=== PATIENT | male | born 1985 | race Caucasian/White ===

== ENCOUNTER → 2017-10-11 10:21 | Outpatient (CLI) | payer OTHER, SELFPAY ==
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
--- NOTE | 2017-10-11 10:39 | XR_ITS ---
EXAM: XR lumbar spine min 4V HISTORY: ORDERING PHYSICIAN: Charles Negron MD PATIENT AGE: 32 years COMPARISON: None FINDINGS: Normal alignment. No fracture or dislocation. No lytic or blastic change. No significant degenerative change. The disc spaces are preserved. IMPRESSION: Negative lumbar spine
== END ==
PROVIDERS: PCP Nurse Practitioner Family; Visit Provider Family Medicine
DX: M54.2 Cervicalgia (principal); M54.5 Low back pain; M54.6 Pain in thoracic spine
CPT/HCPCS: 72050; 72072; 72110

== ENCOUNTER → 2019-02-26 09:20 | Outpatient (CLI) | payer BC, SELFPAY ==
--- NOTE | 2019-02-26 09:38 | MR_ITS ---
MR cervical spine wo/w con HISTORY: ITS.REASON: BACK PAIN ORDERING PHYSICIAN: Beverly Fitzgerald APRN PATIENT AGE: 33 years Comparison: None TECHNIQUE: Standard multiplanar multiecho sequences are performed without contrast. 3-D MIP and myelographic images are also rendered and reviewed. Contrasted images were performed with intravenous injection of 20 cc of ProHance contrast. FINDINGS: Alignment, vertebral body and disc space heights are normal. Signal from the osseous marrow elements are normal. There are no areas of abnormal enhancement or abnormal signal. Spinal cord is normal. There is no disc herniation, bulge or central canal stenosis. Foramen magnum and foraminal areas are normal. Paraspinal structures appear unremarkable. IMPRESSION: Normal exam.
--- NOTE | 2019-02-26 09:38 | MR_ITS ---
MR lumbar spine wo/w con HISTORY: ITS.REASON: BACK PAIN ORDERING PHYSICIAN: Beverly Fitzgerald APRN PATIENT AGE: 33 years Comparison: None TECHNIQUE: Standard multiplanar multiecho sequences are performed without contrast. 3-D MIP and myelographic images are also rendered and reviewed. T1-weighted contrasted images are obtained following intravenous injection of 21 cc of ProHance contrast. FINDINGS: Alignment, vertebral body and disc space heights are normal except for mild loss of disc space height at L5-S1. Signal from the osseous marrow elements are normal with a small benign cavernous hemangioma at the L2 vertebral level. L5-S1 level also shows a small central posterior protrusion of the nucleus pulposus with only mild ventral thecal sac deformity. The remainder of the disc levels are normal without bulge, herniation or central stenosis. There are no areas of abnormal enhancement. Nerve roots and foraminal areas are normal. The conus and Reyna equine a structures are normal. Paraspinal areas are unremarkable. IMPRESSION: L5-S1 degenerative disc disease with small midline posterior disc herniation of the protrusion type with only mild mass effect.
== END ==
PROVIDERS: PCP Family Medicine; Visit Provider Nurse Practitioner Family
DX: M54.5 Low back pain (principal); M54.2 Cervicalgia; M54.6 Pain in thoracic spine
CPT/HCPCS: 72156; 72158; 76376; A9576

== ENCOUNTER → 2019-02-28 08:25 | Outpatient (CLI) | payer BC, SELFPAY ==
--- NOTE | 2019-02-28 08:35 | MR_ITS ---
MR thoracic spine wo/w con ORDERING PHYSICIAN : Beverly Fitzgerald APRN PATIENT AGE: 33 years GENDER: Male HISTORY:ITS.REASON: BACK PAIN COMPARISON: 01/11/2017. TECHNIQUE: Routine multiecho and multiplanar images. FINDINGS: The alignment, vertebral body and disc space heights are normal. Signal from the osseous marrow elements are normal. There is no disc bulge, herniation or central canal stenosis. Foraminal areas and posterior elements appear normal. The visualized paraspinal areas are unremarkable. Spinal cord is of normal caliber and signal. IMPRESSION: Normal exam. No acute process.
== END ==
PROVIDERS: PCP Family Medicine; Visit Provider Nurse Practitioner Family
DX: M54.6 Pain in thoracic spine (principal)
CPT/HCPCS: 72157; A9576

== ENCOUNTER → 2019-08-05 10:39 | Outpatient (CLI) | payer BC, SELFPAY ==
--- NOTE | 2019-08-05 10:47 | XR_ITS ---
PROCEDURE: XR SHOULDER RT MIN 2V CLINICAL INDICATION: RT SHOULDER PAIN COMPARISON: No exams were available for comparison FINDINGS: No fracture, dislocation, lytic change, or blastic change evident. No significant degenerative change IMPRESSION: No acute findings. Dictated by: Morro Joya MD 08/05/2019 19:59 Electronically signed by Morro Joya MD in [place] 08/05/2019 19:59
--- NOTE | 2019-08-05 10:47 | XR_ITS ---
PROCEDURE: XR FOOT LT MIN 3V CLINICAL INDICATION: LT FOOT PAIN COMPARISON: No exams were available for comparison FINDINGS: No fracture or dislocation. No lytic or blastic change. There is normal mineralization. The joint spaces are well-preserved. No significant degenerative/arthritic changes. No erosive changes evident. Other findings:There is a small calcaneal spur nonspecific IMPRESSION: No acute findings. Dictated by: Morro Joya MD 08/05/2019 19:59 Electronically signed by Morro Joya MD in [place] 08/05/2019 19:59
== END ==
PROVIDERS: PCP Nurse Practitioner Family; Visit Provider Nurse Practitioner Family
DX: M25.511 Pain in right shoulder (principal); M79.672 Pain in left foot
CPT/HCPCS: 73030; 73630

== ENCOUNTER → 2020-10-23 14:53 | Outpatient (CLI) | payer BC, SELFPAY ==
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
== END ==
PROVIDERS: PCP Nurse Practitioner Family; Visit Provider Orthopaedic Surgery
DX: M25.511 Pain in right shoulder (principal)
CPT/HCPCS: 73030

== ENCOUNTER 2021-06-02 16:36 | Outpatient (RCR) | payer BC, SELFPAY | END 2021-06-02 17:10 | disposition home or self-care (01) | LOC: PT 16:36 | PROVIDERS: Visit Provider Orthopaedic Surgery | DX: G56.01 Carpal tunnel syndrome, right upper limb (principal) | CPT/HCPCS: 97760 ==

== ENCOUNTER → 2021-10-19 16:35 | Outpatient (CLI) | payer BC, SELFPAY ==
[2021-10-19 17:15] LABS: Basophils % 0.5 % (0.1-2.0); Eosinophils # 0.1 K/mm3 (0.0-0.4); Eosinophils % 2.5 % (0.1-12.0); Hematocrit 43.4 % (42.0-52.0); Hemoglobin 13.9 g/dL (14.1-18.0); Lymphocytes # 1.1 K/mm3 (0.7-4.5); Lymphocytes % 29.8 % (10-50); Mean Corpuscular HGB Conc 32.1 g/dL (31.8-35.4); Mean Corpuscular Hemoglobin 25.3 pg (27.0-31.2); Mean Corpuscular Volume 78.8 fl (80-94); Mean Platelet Volume 8.2 fl (7.4-10.4); Monocytes # 0.3 K/mm3 (0.1-1.0); Monocytes % 7.1 % (1.7-9.3); Neutrophils # 2.3 K/mm3 (1.8-7.8); Platelet Count 218 K/mm3 (142-424); Red Cell Distribution Width 14.8 % (11.5-17.5); White Blood Count 3.8 K/mm3 (4.8-10.8)
[2021-10-19 17:40] LABS: Chloride 103 mmol/L (98-107); Potassium 4.2 mmoL/L (3.5-5.1); Sodium 137 mmol/L (136-145)
[2021-10-19 17:43] LABS: Anion Gap 12.2 mEq/L (5-15); Blood Urea Nitrogen 14 mg/dl (9-20); Calcium 8.5 mg/dl (8.4-10.2); Carbon Dioxide 26 mmol/L (22.0-30.0); Estimated Glomerular Filt Rate 68 ml/min (>60); GFR (African American) 82 ML/MIN (>60); Glucose 86 mg/dl (74-100)
[2021-10-19 17:49] LABS: C-Reactive Protein 1.1 mg/L (0-4)
[2021-10-19 18:14] LABS: Erythrocyte Sedimentation Rate 27 mm/hr (0-15)
== END ==
PROVIDERS: PCP Nurse Practitioner Family; Visit Provider Podiatrist
DX: Z01.818 Encounter for other preprocedural examination (principal); M79.672 Pain in left foot; M72.2 Plantar fascial fibromatosis
CPT/HCPCS: 36415; 80048; 85025; 85651; 86140

== ENCOUNTER → 2021-10-21 16:29 | Outpatient (CLI) | payer BC, SELFPAY ==
--- NOTE | 2021-10-21 16:38 | XR_ITS ---
PROCEDURE INFORMATION: Exam: XR Left Foot Complete; Alignment Exam date and time: 10/21/2021 4:38 PM Age: 36 years old Clinical indication: Pain; Foot; Left; Additional info: Left foot pain, plantar fasciitis, pre op planning TECHNIQUE: Imaging protocol: XR Left foot. Views: 3 or more views. COMPARISON: MRI LOWER EXTREMITY FOOT W/WOUT 11/23/2020 5:06 PM FINDINGS: Bones/joints: No acute displaced fracture. No dislocation. Minimal degenerative spurring of the 1st MTP joint. Small to moderate size plantar and small dorsal calcaneal enthesophytes. Soft tissues: Normal. IMPRESSION: No acute finding. Calcaneal enthesophytes.
== END ==
PROVIDERS: PCP Nurse Practitioner Family; Visit Provider Podiatrist
DX: M79.672 Pain in left foot (principal); M72.2 Plantar fascial fibromatosis; M77.32 Calcaneal spur, left foot
CPT/HCPCS: 73630

== ENCOUNTER → 2021-11-08 16:24 | Outpatient (CLI) | payer BC, SELFPAY | PROVIDERS: Visit Provider Podiatrist | DX: Z01.812 Encounter for preprocedural laboratory examination (principal); Z11.52 Encounter for screening for COVID-19 | CPT/HCPCS: C9803; U0003; U0005 ==

== ENCOUNTER 2021-11-10 06:04 | Day surgery (SDC) | payer BC, SELFPAY ==
[2021-11-08 15:07] VITALS: BMI 33.2
[2021-11-10] VITALS (10 sets, daily range): BP systolic 124–160; BP diastolic 72–84; PULSE 77–98; RESP 12–18; TEMP 36.3–43; O2SAT 93–99
--- NOTE | 2021-11-10 06:32 | ECG_ITS ---
APPROVED REPORT Exam: Resting ECG HR:75 bpm ECG Measurements Heart Rate 75 AXES PA 168 P 57 QRSd 94 QRS 44 QT 381 T 39 QTc 410 Conclusion SINUS RHYTHM POSSIBLE RIGHT VENTRICULAR CONDUCTION DELAY [RSR (QR) IN V1/V2] BORDERLINE ECG UNCONFIRMED REPORT Electronically signed by : Chase Dumas MD 11/10/2021 17:50:05
--- NOTE | 2021-11-10 07:18 | HMH.OPNOTE ---
Date of procedure: 11/10/21 Pre-op Diagnosis:: 1. Left plantar fasciitis 2. Left gastrocnemius equinus Post-op Diagnosis:: Same Procedure performed:: 1. Left plantar fasciectomy (fasciotomy) 2. Left gastrocnemius recession 3. Application of graft 4. Application of posterior splint Surgeon:: Marisa Ellis DPM Anesthesia: regional (left popliteal, saph nerve block) Estimated blood loss (mL): 10 Clinical Note:: Indications: Patient is a 36-year-old male who has had chronic plantar fasciitis for almost 2.5-3 years. Patient has tried and failed all conservative care modalities. The patient has tried immobilization in fracture boot, modification of shoe gear, strapping, inserts, ice, elevation, and NSAIDs. He has also tried steroid injections, physical therapy, stretching, night splint, ultrasound, E stim. After a long discussion with the patient in regards to the conservative versus surgical treatment for the plantar fasciitis, the patient has elected to proceed with surgery because he has failed conservative treatment and continue to have pain and symptoms affecting daily activities. The patient has been instructed on the planned procedure, all risk versus benefits of the procedure discussed. These include but are not limited to: bleeding, infection, nerve and blood vessel damage, need for further surgery, delay in healing of soft tissue or bone, tendon re-rupture, failure of bones to heal, non-union, mal-union, failure of the implant, prolonged pain and recovery, CRPS/RSD, DVT/PE and anesthetic complications. No guarantees were given. All questions fully answered. The patient verbalized understanding and agreed to proceed with surgery. Written consent was obtained. Necessary labs and pre-op testing ordered: CBC, CMP, EKG, covid. PCP: Beverly Fitzgerald/Dr Awad. Patient does not smoke, non-DM. He will need post op meds: [place] 7.5mg, Zofran 4mg, Motrin 800mg, gabapentin 100mg TID, Keflex 500mg x7d. Operative findings:: Left gastrocnemius equinus noted, relived with recession. Plantar fascia contracture noted. Extensive inflammation and scarring noted to the medial band of the plantar fascia. No evidence of soft tissue mass or infection. Operative note:: On this date and time, the patient was deemed an appropriate surgical candidate. With informed consent signed, preop popliteal and saphenous nerve block given by anesthesia. The patient was taken to the operating theater. The patient was positioned supine. General anesthesia was induced. Tourniquet was applied to the left mid-calf. The left lower extremity was prepped and draped in normal sterile fashion. Left gastrocnemius recession: Attention was directed to the posterior leg medially a linear incision was mapped out. Dissection was carried through the skin to subcutaneous tissue with care taken to maintain surgical hemostasis and safely retract neurovascular structures. Patient was then carried down bluntly through the subcutaneous tissue to the peritenon overlying the gastrocnemius muscle. The peritenon was transected and preserved for later closure. The gastroc was identified and utilizing a 15 blade a Trav transverse incision was made while the foot was being dorsiflexed and the tendon was released. Good reduction of the equinus deformity was noted. It was flushed with normal sterile saline. Vicryl was used to reapproximate the peritenon overlying the tendon in a running fashion. The soft tissue was then closed in a layered fashion and a 4-0 Monocryl was used to close subcutaneous as well as subcuticular tissue and a running fashion. Mastisol and Steri-Strips applied. Left plantar fasciectomy/fasciotomy: Attention was directed to the plantar heel where an incision was made of the weightbearing surface through skin and subcutaneous tissue. Care taken to maintain surgical-assisted basis and safely retract neurovascular structures. Some bleeding noted, vessels ligated as necessary. Tourniquet was inflated 225 mmH
--- NOTE | 2021-11-10 07:47 | P.PN_ITS ---
[facility] Anesthesia Checklist - Structural Data Admitted From: Home Planned Operative Procedure/s: l plantar fasciotomy Consent for Planned Operative Procedure(s) Verified: Yes - Additional verifications Anesthesia Reactions: No Hx Blood Transfusions: No Blood Transfusion Reaction: No - Airway Assessment C-Spine Mobility Assessed: Yes TMJ Mobility Assessed: Yes Dentition: Good Dentition - Neurological Assessment Level of Consciousness: Awake, Alert, Appropriate - Anesthesia Plan Anesthesia Risk discussed: Yes Anesthesia Plan: Verified ASA Class: I Anesthesia Type: General w/block - Preoperative Comments Pre-Operative Comments: pop block exp to pt incl risks. pt agrees to proceed [facility] History I have reviewed the patient's past medical history: Yes Medical History: Denies:: Cancer, Diabetes Mellitus Type 1, Diabetes Mellitus Type 2, Internal Pacemaker, MRSA, Seizures *Have you ever received a pneumonia vaccine?: No *Have you received a flu vaccine this season?: Yes Other Medical History: Denies: Blood Transfusion Reaction Anesthesia experience/problems:: none Laterality Cases: Bilateral: Other Other Surgeries: Yes: No Previous Surgery, Other. No: Pacemaker Amputation: No - *Social History Last grade of school completed: High school graduate Smoking Status: Never smoker # Packs/Day (cigarettes): 0 #Yrs smoked (if former smoker): 0 Alcohol Intake: current Alcohol Intake Frequency:: holidays/special occasions only Substance Use Type: denies use *Occupational Status:: employed Housing: house *Travel in the last 8 weeks: None Family Hx:: Diabetes, Hypertension, Cancer
--- NOTE | 2021-11-10 08:30 | XR_ITS ---
FINAL REPORT CLINICAL HISTORY: Post op plantar fasciotomy COMPARISON: 10/21/2021 FINDINGS: LEFT FOOT Three views demonstrate no acute fracture or dislocation. Splint obscures the detail. The joint spaces appear normal. The visualized bony structures are well aligned. No soft tissue abnormality is seen. IMPRESSION: No acute bony abnormality. No change from prior. Reviewed, Interpreted and Dictated by Nash Alfred III, MD Transcribed by Beverly Lara Authenticated by Nash Alfred III, MD on 11/10/2021 10:23:01 AM [facility]
--- NOTE | 2021-11-10 08:31 | P.PN_ITS ---
[facility] Anesthesia Record Part I Intake, IV Amount: 1,400 Estimated blood loss (mL): 0 Urine output (mL): 0 Blood Pressure: 124/84 SaO2: 95 Pulse Rate: 98 Respiratory Rate: 12 Temperature: 98.4 F Patient is:: Awake, Stable Stable to PACU at:: 08:30
[2021-11-11 07:58] VITALS: BP 128/72; PULSE 86; TEMP 37
--- NOTE | 2021-11-11 07:58 | P.PN_ITS ---
[facility] Anesthesia Record Part II Discharge Time: 09:00 Destination: Surgical Day Care (OP Surgery) PACU nurse assessment reviewed?: Yes Patient Condition:: Good Anesthesia Complications:: None Swallowing reflex intact?: Yes Cyanosis?: No Blood Pressure: 128/72 Pulse Rate: 86 Temperature: 98.6 F Mental Status: Alert & Oriented Pain level:: 0 Nausea and/or vomitting:: None Intake, IV Amount: 0
== END 2021-11-10 09:45 | disposition home or self-care (01) ==
LOC: OR 06:07
PROVIDERS: PCP Nurse Practitioner Family; Visit Provider Podiatrist
PROC: (CPT 28008; principal; 2021-11-10 07:30)
DX: M72.2 Plantar fascial fibromatosis (principal); M62.462 Contracture of muscle, left lower leg
CPT/HCPCS: 28008; 27687; 73630; 93005; 96374; J2405

== ENCOUNTER 2021-11-15 16:23 | Emergency (ER) | payer BC, SELFPAY ==
--- NOTE | 2021-11-15 16:12 | ECG_ITS ---
APPROVED REPORT Exam: Resting ECG HR:75 bpm ECG Measurements Heart Rate 75 AXES MD 166 P 35 QRSd 84 QRS 44 QT 357 T 24 QTc 386 Conclusion SINUS RHYTHM POSSIBLE LEFT ATRIAL ENLARGEMENT [-0.1mV P-WAVE IN V1/V2] BORDERLINE ECG UNCONFIRMED REPORT Electronically signed by : Chase Dumas MD 11/16/2021 14:07:08
[2021-11-15 16:48] VITALS: BP 105/70; PULSE 77; RESP 13; TEMP 36.9; O2SAT 96; BMI 3905.5
--- NOTE | 2021-11-15 16:55 | XR_ITS ---
PROCEDURE INFORMATION: Exam: XR Chest Exam date and time: 11/15/2021 4:55 PM Age: 36 years old Clinical indication: Other: Syncope TECHNIQUE: Imaging protocol: XR of the chest. Views: 2 views. COMPARISON: CR XR SHOULDER RT MIN 2V 10/23/2020 3:02 PM FINDINGS: Airway: Patent Lungs: Stable 9 mm calcified granuloma in the right lower lobe is of no clinical concern. No acute interstitial or airspace disease. Pleural spaces: Unremarkable. No pleural effusion. No pneumothorax. Heart/Mediastinum: Unremarkable. No cardiomegaly. Bones/joints: No acute skeletal abnormality or aggressive osseous lesion. IMPRESSION: No acute thoracic pathology.
[2021-11-15 17:03] LABS: Basophils # 0.1 K/mm3 (0-0.2); Basophils % 1.2 % (0.1-2.0); Chloride 103 mmol/L (98-107); Eosinophils # 0.1 K/mm3 (0.0-0.4); Hematocrit 47.9 % (42.0-52.0); Hemoglobin 15.8 g/dL (14.1-18.0); Lymphocytes # 1.4 K/mm3 (0.7-4.5); Lymphocytes % 26.2 % (10-50); Mean Corpuscular Hemoglobin 26.1 pg (27.0-31.2); Mean Platelet Volume 8.2 fl (7.4-10.4); Monocytes # 0.3 K/mm3 (0.1-1.0); Monocytes % 4.9 % (1.7-9.3); Neutrophils # 3.4 K/mm3 (1.8-7.8); Neutrophils % 65.6 % (37.0-80.0); Platelet Count 332 K/mm3 (142-424); Potassium 4.3 mmoL/L (3.5-5.1); Red Blood Count 6.07 M/mm3 (4.60-6.20); Red Cell Distribution Width 15.6 % (11.5-17.5); Sodium 136 mmol/L (136-145); White Blood Count 5.2 K/mm3 (4.8-10.8)
[2021-11-15 17:06] LABS: Anion Gap 15.3 mEq/L (5-15); Blood Urea Nitrogen 16 mg/dl (9-20); Carbon Dioxide 22 mmol/L (22.0-30.0); Estimated Glomerular Filt Rate 75 ml/min (>60); GFR (African American) 91 ML/MIN (>60); Glucose 117 mg/dl (74-100)
--- NOTE | 2021-11-15 17:08 | PC.NURSE ---
patient to radiology with career technical counselor
[2021-11-15 17:20] LABS: Troponin I 0.02 ng/ml (0.00-0.034)
[2021-11-15 17:31] VITALS: BP 115/65; PULSE 76; O2SAT 97
[2021-11-15 18:20] LABS: D-Dimer 0.42 ug/mL (0.0-0.5)
[2021-11-15 18:22] VITALS: BP 109/70; PULSE 81; O2SAT 94
--- NOTE | 2021-11-15 18:49 | HMH.EDGENADL ---
ED Disposition Clinical Impression: Vasovagal syncope Disposition: Home, Self-Care Condition on Discharge: Good Instructions: DI for Syncope in Adults (Fainting), DI for Syncope in Children (Fainting) Additional Instructions: Please continue to monitor your condition closely at home. Stay well-hydrated. If your condition worsens or any other concerns arise, please return to the emergency department for reassessment. Otherwise, follow-up with your primary care physician. Referrals: Beverly Fitzgerald APRN [Primary Care Provider] - - Critical Care Critical Care Time: No Attestation: On 11/15/21, the high probability of a clinically significant, sudden or life threatening deterioration of the following system(s) required my full and direct attention, intervention and personal management. The time I documented below is in addition to time spent performing reported procedures but includes the following listed in this critical care notation. Medical Decision Making - Medical Records Medical records reviewed: Yes: I reviewed the patient's medical records. - Venkatesh Inquiry Pt receiving controlled substance: No Vital Signs: 11/15/21 16:48 11/15/21 17:31 11/15/21 18:22 Temperature 98.5 F Temperature Source Oral Pulse Rate 76 81 Pulse Rate [Left Radial] 77 Respiratory Rate 13 Blood Pressure 115/65 109/70 L Blood Pressure [Right Arm] 105/70 L Blood Pressure Mean [Right Arm] 81 02 Sat by Pulse Oximetry 96 97 94 L Oxygen Delivery Method Room Air Room Air Room Air 11/15/21 19:15 Temperature 98.5 F Temperature Source Oral Pulse Rate 80 Pulse Rate [Left Radial] Respiratory Rate 17 Blood Pressure 110/68 Blood Pressure [Right Arm] Blood Pressure Mean [Right Arm] 02 Sat by Pulse Oximetry Oxygen Delivery Method Room Air - Lab Data Lab results reviewed: Yes: I reviewed the patient's lab results. Lab Results 11/15/21 16:16: WBC 5.2, RBC 6.07, Hgb 15.8, Hct 47.9, MCV 79.0 L, MCH 26.1 L, MCHC 33.0, RDW 15.6, Plt Count 332, MPV 8.2, Neut % (Auto) 65.6, Lymph % (Auto) 26.2, [place] % (Auto) 4.9, Eos % (Auto) 2.0, Baso % (Auto) 1.2, Neut # (Auto) 3.4, Lymph # (Auto) 1.4, [place] # (Auto) 0.3, Eos # (Auto) 0.1, Baso # (Auto) 0.1 11/15/21 16:16: Sodium 136, Potassium 4.3, Chloride 103, Carbon Dioxide 22, Anion Gap 15.3 H, BUN 16, Creatinine 1.10, Estimated Creat Clear Not Reportable, Estimated GFR 75, Est GFR ( Amer) 91, Glucose 117 H, Calcium 9.0, Troponin I 0.02 11/15/21 16:16: D-Dimer 0.42 Result diagrams: 11/15/21 16:16 11/15/21 16:16 Orders (Tests/Meds): ED MEDICATIONS Discontinued Medications Generic Name Dose Route Start Last Admin Trade Name Freq PRN Reason Stop Dose Admin Sodium Chloride 10 ml 11/15/21 17:35 Sodium Chloride 0.9% 10ml Flush Syringe IV 12/15/21 17:34 NEEDED PRN Maintain IV Site Medical Decision Narrative: Patient is a healthy 36-year-old male presenting with a chief complaint of syncope. Differential diagnosis includes, but is not limited to, vasovagal syncope, dehydration, DVT/PE, cardiac syncope. On initial exam, patient is hemodynamically stable nontoxic-appearing. He is currently at baseline and denies shortness of breath, chest pain. No objective lower extremity limb swelling. Patient was evaluate CBC, CMP, troponin and D-dimer. Lab work was within normal limits. On reassessment, patient appears stable and is asymptomatic. Presentation is consistent with vasovagal syncope. Patient was counseled regarding return precautions and discharged in a stable condition. General Adult HPI - General Chief complaint: Syncope Stated complaint: Weakness/syncope Time Seen by Provider: 11/15/21 17:15 Mode of Arrival: EMS Limitations: No Limitations Description of Symptoms (Recalled from ER Triage Doc. by RN): pt to ed c/o syncopal episode. pt states he was at work and started to feel lightheaded, broke out in a sweat and passed out. pt states +LO
[2021-11-15 19:15] VITALS: BP 110/68; PULSE 80; RESP 17; TEMP 36.9; O2SAT 96
== END 2021-11-15 19:16 | disposition home or self-care (01) ==
PROVIDERS: Emergency Provider Emergency Medicine; PCP Nurse Practitioner Family
DX: R55 Syncope and collapse (principal); R11.0 Nausea; H53.8 Other visual disturbances
CPT/HCPCS: 71046; 80048; 84484; 85025; 85378; 93005; 99283

== ENCOUNTER 2021-11-16 14:43 | Emergency (ER) | payer BC, SELFPAY ==
[2021-11-16] VITALS (9 sets, daily range): BP systolic 113–139; BP diastolic 56–81; PULSE 74–94; RESP 16–18; TEMP 36.9; O2SAT 97–99; BMI 33.2
--- NOTE | 2021-11-16 14:44 | ECG_ITS ---
APPROVED REPORT Exam: Resting ECG HR:72 bpm ECG Measurements Heart Rate 72 AXES MO 217 P 63 QRSd 89 QRS 58 QT 388 T 42 QTc 413 Conclusion SINUS RHYTHM WITH FIRST DEGREE AV BLOCK POSSIBLE LEFT ATRIAL ENLARGEMENT [-0.1mV P-WAVE IN V1/V2] ABNORMAL ECG UNCONFIRMED REPORT Electronically signed by : Chase Dumas MD 11/17/2021 18:03:23
--- NOTE | 2021-11-16 15:07 | XR_ITS ---
FINAL REPORT CLINICAL HISTORY: SYNCOPE, had same episode yesterday COMPARISON: November 15, 2021 FINDINGS: The heart size is normal. The mediastinum is normal. There is no focal infiltrate or edema. There are no pleural effusions. There is no pneumothorax. There is no osseous abnormality. IMPRESSION: No acute cardiopulmonary process Reviewed, Interpreted and Dictated by Nash Alfred III, MD Transcribed by Gordon Stovall Authenticated by Nash Alfred III, MD on 11/16/2021 04:15:39 PM [facility]
--- NOTE | 2021-11-16 15:14 | PC.NURSE ---
rad notified of cxr order
[2021-11-16 15:19] LABS: Anion Gap 13.1 mEq/L (5-15); Basophils % 0.8 % (0.1-2.0); Blood Urea Nitrogen 16 mg/dl (9-20); Calcium 8.7 mg/dl (8.4-10.2); Carbon Dioxide 24 mmol/L (22.0-30.0); Chloride 106 mmol/L (98-107); Creatinine Clearance Estimated 159 mL/min (50-200); Eosinophils # 0.1 K/mm3 (0.0-0.4); Eosinophils % 2.4 % (0.1-12.0); Estimated Glomerular Filt Rate 84 ml/min (>60); GFR (African American) 102 ML/MIN (>60); Glucose 103 mg/dl (74-100); Hematocrit 41.9 % (42.0-52.0); Lymphocytes % 26.3 % (10-50); Mean Corpuscular HGB Conc 33.3 g/dL (31.8-35.4); Mean Corpuscular Hemoglobin 26.4 pg (27.0-31.2); Mean Corpuscular Volume 79.3 fl (80-94); Mean Platelet Volume 8.5 fl (7.4-10.4); Monocytes # 0.3 K/mm3 (0.1-1.0); Monocytes % 7.8 % (1.7-9.3); Neutrophils # 2.5 K/mm3 (1.8-7.8); Neutrophils % 62.7 % (37.0-80.0); Platelet Count 226 K/mm3 (142-424); Potassium 4.1 mmoL/L (3.5-5.1); Red Blood Count 5.29 M/mm3 (4.60-6.20); Red Cell Distribution Width 15.7 % (11.5-17.5); Sodium 139 mmol/L (136-145); White Blood Count 3.9 K/mm3 (4.8-10.8)
[2021-11-16 15:31] LABS: Troponin I 0.02 ng/ml (0.00-0.034)
--- NOTE | 2021-11-16 15:57 | CT_ITS ---
PROCEDURE INFORMATION: Exam: CT Head Without Contrast Exam date and time: 11/16/2021 3:57 PM Age: 36 years old Clinical indication: Syncope and collapse; Patient HX: Syncope for the last two days TECHNIQUE: Imaging protocol: Computed tomography of the head without contrast. Radiation optimization: All CT scans at this facility use at least one of these dose optimization techniques: automated exposure control; mA and/or kV adjustment per patient size (includes targeted exams where dose is matched to clinical indication); or iterative reconstruction. COMPARISON: FINDINGS: Brain: There is no acute intracranial hemorrhage or abnormal extra-axial fluid collection identified. There is no intracranial mass effect or shift of midline structures. The moran-white differentiation is preserved throughout. Cerebral ventricles: There is no sulcal or ventricular effacement. The basilar cisterns are open. No hydrocephalus. Paranasal sinuses: There is minimal sinus mucosal disease, with no air-fluid level identified. Mastoid air cells: There is no mastoid effusion detected. Bones/joints: No calvarial fracture or destructive osseous lesions are seen. Soft tissues: Unremarkable. IMPRESSION: No acute intracranial pathology identified by CT.
--- NOTE | 2021-11-16 15:57 | HMH.EDSYNC ---
ED Disposition Clinical Impression: Syncope Qualifiers: Syncope type: unspecified Qualified Code(s): R55 - Syncope and collapse Disposition: Home, Self-Care Condition on Discharge: Good Instructions: DI for Syncope in Adults (Fainting) Additional Instructions: follow up with cardiology return here for worse Referrals: Beverly Fitzgerald APRN [Primary Care Provider] - Jim Mayes MD [Staff Physician] - - Critical Care Critical Care Time: No Attestation: On 11/16/21, the high probability of a clinically significant, sudden or life threatening deterioration of the following system(s) required my full and direct attention, intervention and personal management. The time I documented below is in addition to time spent performing reported procedures but includes the following listed in this critical care notation. Medical Decision Making - Medical Records Medical records reviewed: Yes: I reviewed the patient's medical records. - Venkatesh Inquiry Pt receiving controlled substance: No Vital Signs: 11/16/21 14:43 11/16/21 15:25 11/16/21 15:31 Pulse Rate 84 92 H Pulse Rate [Left Radial] 84 Respiratory Rate 16 18 Blood Pressure 134/80 121/70 Blood Pressure [Right Arm] 139/81 Blood Pressure Mean 98 87 Blood Pressure Mean [Right Arm] 100 Blood Pressure Source [Right Arm] Automatic Cuff Blood Pressure Position [Right Arm] Sitting 02 Sat by Pulse Oximetry 97 98 98 Oxygen Delivery Method Room Air 11/16/21 16:00 11/16/21 16:31 Pulse Rate 92 H 94 H Pulse Rate [Left Radial] Respiratory Rate 18 18 Blood Pressure 118/63 123/56 L Blood Pressure [Right Arm] Blood Pressure Mean 77 78 Blood Pressure Mean [Right Arm] Blood Pressure Source [Right Arm] Blood Pressure Position [Right Arm] 02 Sat by Pulse Oximetry 98 98 Oxygen Delivery Method - Lab Data Lab Results 11/16/21 14:49: WBC 3.9 L, RBC 5.29, Hgb 14.0 L D, Hct 41.9 L, MCV 79.3 L, MCH 26.4 L, MCHC 33.3, RDW 15.7, Plt Count 226 D, MPV 8.5, Neut % (Auto) 62.7, Lymph % (Auto) 26.3, [place] % (Auto) 7.8, Eos % (Auto) 2.4, Baso % (Auto) 0.8, Neut # (Auto) 2.5, Lymph # (Auto) 1.0, [place] # (Auto) 0.3, Eos # (Auto) 0.1, Baso # (Auto) 0.0 11/16/21 14:49: Sodium 139, Potassium 4.1, Chloride 106, Carbon Dioxide 24, Anion Gap 13.1, BUN 16, Creatinine 1.00, Estimated Creat Clear 159, Estimated GFR 84, Est GFR ( Amer) 102, Glucose 103 H, Calcium 8.7, Troponin I 0.02 11/16/21 14:49: D-Dimer 0.47 Result diagrams: 11/16/21 14:49 11/16/21 14:49 Orders (Tests/Meds): ED MEDICATIONS Generic Name Dose Route Start Last Admin Trade Name Freq PRN Reason Stop Dose Admin Sodium Chloride 10 ml 11/16/21 15:07 Sodium Chloride 0.9% 10ml Flush Syringe IV 12/16/21 15:06 NEEDED PRN Maintain IV Site ORDERS Category Date Time Status Troponin I Q3H Lab 11/16/21 18:15 Ordered Troponin I Q3H Lab 11/16/21 21:15 Ordered Medical Decision Narrative: ekg by me nsr, sinus arrythmia, lae, no st elev reeval 1800 vss appears well asymptomatic here ok with plan to f/u cardiology outpt here Syncope HPI - General Chief Complaint: Syncope Stated Complaint: sycope Time Seen by Provider: 11/16/21 16:03 Mode of Arrival: EMS Limitations: No Limitations Description of Symptoms (Recalled from ER Triage Doc. by RN): c/o pain in left surgery foot after falling down the steps, vomiting and then passed out - History of Present Illness HPI narrative: syncopal episode today after falling down steps syncope yesterday at recent h/o left foot surgery MD complaint: loss of consciousness Prodromal symptoms: none Witnessed: yes - by bystander Current symptoms: none Treatments prior to arrival: none - Related Data Home Medications Medication Instructions Recorded Confirmed cephALEXin [cephALEXin 500mg 500 mg PO Q12H 11/10/21 11/10/21 capsule*] Previous Rx's Medication Instructions Recorded gabapentin 100 m
--- NOTE | 2021-11-16 15:58 | XR_ITS ---
PROCEDURE INFORMATION: Exam: XR Left Foot Exam date and time: 11/16/2021 3:58 PM Age: 36 years old Clinical indication: Pain; Foot; Left; Prior surgery; Surgery date: 3-7 days post-operative; Additional info: Fall/pain TECHNIQUE: Imaging protocol: XR Left foot. Views: 1 or 2 views. COMPARISON: CR XR FOOT LT MIN 3V 11/10/2021 8:52 AM FINDINGS: Bones/joints: No acute displaced fracture is visualized. No acute luscent fracture lines are visualized. A plantar calcaneal spur is noted. No dislocation. On lateral view, there is a 3 mm os ossific body projecting over the plantar soft tissues at the mid metatarsal level. This is not well localized, as it is not seen on frontal radiograph. Soft tissues: Splinting material partially obscures bony and soft tissue detail. There is no subcutaneous emphysema identified. IMPRESSION: 1. Splinting material partially obscures bony and soft tissue detail. 2. No acute fracture or dislocation. 3. Plantar calcaneal spur.
[2021-11-16 17:28] LABS: D-Dimer 0.47 ug/mL (0.0-0.5)
== END 2021-11-16 18:53 | disposition home or self-care (01) ==
PROVIDERS: Emergency Provider Emergency Medicine; PCP Nurse Practitioner Family
DX: R55 Syncope and collapse (principal); I49.9 Cardiac arrhythmia, unspecified; Z79.1 Long term (current) use of non-steroidal anti-inflammatories (NSAID); Z79.899 Other long term (current) drug therapy; Z82.49 Family history of ischemic heart disease and other diseases of the circulatory system; Z80.9 Family history of malignant neoplasm, unspecified; Z83.3 Family history of diabetes mellitus; W10.9XXA Fall (on) (from) unspecified stairs and steps, initial encounter
CPT/HCPCS: 70450; 71045; 73620; 80048; 84484; 85025; 85378; 93005; 99285

== ENCOUNTER → 2021-11-19 06:11 | Outpatient (CLI) | payer BC, SELFPAY ==
--- NOTE | 2021-11-19 06:13 | MR_ITS ---
FINAL REPORT CLINICAL HISTORY: ACHILLES TENDON RUPTURE, PT HAD PLANTAR FASCIOTOMY X1 WEEK AGO, NOW HAVING PAIN, REDNESS, SWELLING, TENDERNESS LEFT LOWER LEG MIDWAY. FALL 4 DAYS AGO. 22ML PROHANCE INJECTED FINDINGS: Multiplanar MR imaging of the left lower leg was obtained without and with contrast. The bony structures are intact without evidence of fracture. No bony mass is identified. Portions of the lower leg are obscured by artifact. There is a high-grade near-complete tear of the Achilles tendon at the level of the mid lower leg. A few of the fibers appear intact along the lateral aspect. Most of the tendon is retracted approximately 2.6 cm. There is abnormal signal of the soleus muscle consistent with moderate muscle injury. There is posterior soft tissue edema or hemorrhage. On the postcontrast images, there is contrast enhancement of the soleus muscle and adjacent soft tissues. IMPRESSION: High-grade near-complete tear of the Achilles tendon. Moderate muscle injury of the soleus muscle. Reviewed, Interpreted and Dictated by Nash Alfred III, MD Transcribed by Beverly Lara Authenticated by Nash Alfred III, MD on 11/19/2021 09:15:56 AM [facility]
== END ==
PROVIDERS: PCP Nurse Practitioner Family; Visit Provider Podiatrist
DX: S80.12XA Contusion of left lower leg, initial encounter (principal); S86.012A Strain of left Achilles tendon, initial encounter
CPT/HCPCS: 73720; A9576

== ENCOUNTER → 2021-11-22 09:28 | Outpatient (CLI) | payer BC, SELFPAY ==
--- NOTE | 2021-11-22 13:47 | CA_ITS ---
APPROVED REPORT EXAM: Comprehensive 2D, Doppler, and color-flow Echocardiogram Crown Wheel Assembler: Sapna Purvis RVT Ht: 6 ft 0 in Wt: 245lbs BSA: 2.32 BP: 124/75 mmHg Indications: PRE-OP,TACHYCARDIA,SYNCOPE,ROGERS,OBESITY 2D Dimensions LVOT 2.38 cm (M/F) 1.5-2.5 LA Volume 20.80 mL LA Volume Index 8.96 mL/m2 (M/F) 16-34 M-Mode Dimensions RVDd 2.89 cm (0.9-2.6) LA Diam 3.17 cm (1.9-4.0) LVDd 5.30 cm (3.5-5.7) Ao Diam 3.79 cm (2.0-3.7) LVDs 3.04 cm (3.5-5.7) IVSd 1.05 cm (0.6-1.1) PWd 0.70 cm (0.6-1.1) EF (Teich) 73.20% FS 42.60% EDV (Teich) 135.30 mL TAPSE 2.82 (<1.7) ESV (Teich) 36.20 mL LV Diastology E Decel Time 133.00 (160-240 msec) E/A Ratio 0.8 MED E' 5.30 (< 7 cm/sec) E'/MED E' Ratio 10.40 (>14) LAT E' 10.20 (<10 cm/sec) E/LAT E' Ratio 5.40 (>14) Aortic Valve AO Peak GR. 3.70 mmHg Mitral Valve MV E Max Dawood. 55.00 (40-130 cm/s) MV A Velocity 71.00 (40-130 cm/s) E/A Ratio 0.77 MV Decel. Time 133.00 (160-240 ms) MV PHT 39.00 ms Pulmonary Valve PV Peak Velocity 83.00 (50-150 cm/s) Left Ventricle Left atrium is normal size, left ventricle is normal size, there is no concentric left ventricular hypertrophy, visually estimated ejection fraction 55% with no regional wall motion abnormality, diastolic parameters are inconclusive. Right Ventricle Right atrium and right ventricle are normal size and contractility. Aortic Valve Aortic valve is grossly normal, there is no aortic stenosis or aortic insufficiency. Mitral Valve Mitral valve is grossly normal, there is trace mitral regurgitation. Tricuspid Valve Tricuspid valve grossly normal, there is trace tricuspid regurgitation, tricuspid regurgitation jet velocity is inadequate for calculation of the right ventricular systolic pressure. Pulmonic Valve Pulmonic valve is poorly visualized. Great Vessels Aortic root is normal size. Inferior vena cava is poorly visualized. Pericardium No significant pericardial effusion. Conclusion 1. Normal left ventricular size, preserved left ventricular systolic function, visually estimated ejection fraction 55% with no regional wall motion abnormality, diastolic parameters are inconclusive. 2. Trace mitral and tricuspid regurgitation. 3. No significant pericardial effusion. 4. Inferior vena cava is poorly visualized. Electronically signed by : Compa Galvan MD 11/22/2021 20:45:52
--- NOTE | 2021-11-22 14:37 | CT_ITS ---
FINAL REPORT TECHNIQUE: Thin section axial CT images were obtained from the lung apices to the upper abdomen. IV contrast was administered. MIP 3-D reformats were obtained. This study was performed with techniques to keep radiation doses as low as reasonably achievable (ALARA). Individualized dose reduction techniques using automated exposure control or adjustment of mA and/or kV according to the patient's size were employed. CLINICAL HISTORY: preop/tachycardia/dyspnea. FINDINGS: The heart size is normal. There is no adenopathy. There is no filling defect to suggest PE. There is no aortic dissection. There is no pericardial effusion. There is no suspicious infiltrate or nodule. No pleural effusion. Limited images of the upper abdomen demonstrate no acute abnormality. IMPRESSION: No pulmonary embolism or aortic dissection. Reviewed, Interpreted and Dictated by Feng Blake MD Transcribed by Gordon Stovall Authenticated by Feng Blake MD on 11/22/2021 04:28:[address] [facility]
== END ==
PROVIDERS: PCP Nurse Practitioner Family; Visit Provider Internal Medicine
DX: Z01.810 Encounter for preprocedural cardiovascular examination (principal); Z11.52 Encounter for screening for COVID-19; R06.00 Dyspnea, unspecified; R55 Syncope and collapse; R00.0 Tachycardia, unspecified; E66.9 Obesity, unspecified; Z68.33 Body mass index [BMI] 33.0-33.9, adult
CPT/HCPCS: 71275; 93306; C9803; Q9967; U0003; U0005

== ENCOUNTER 2021-11-24 10:25 | Day surgery (SDC) | payer BC, SELFPAY ==
[2021-11-24] VITALS (12 sets, daily range): BP systolic 104–126; BP diastolic 52–90; PULSE 68–88; RESP 14–18; TEMP 36.4–43; O2SAT 91–100; BMI 33.2
--- NOTE | 2021-11-24 11:32 | P.PN_ITS ---
[facility] Anesthesia Checklist - Patient Identification Patient Identification: Arm Band - Structural Data Admitted From: Home Planned Operative Procedure/s: Achilles tendon repair Consent for Planned Operative Procedure(s) Verified: Yes - NPO Status Verified Time NPO: 00:00 - Additional verifications Anesthesia Reactions: No Hx Blood Transfusions: No Blood Transfusion Reaction: No - Airway Assessment C-Spine Mobility Assessed: Yes TMJ Mobility Assessed: Yes - Neurological Assessment Level of Consciousness: Awake Hx Seizures: No Numbness or tingling in extremities: No - Anesthesia Plan Anesthesia Risk discussed: Yes Anesthesia Plan: Verified ASA Class: II Anesthesia Type: General w/block [facility] History Medical History: Reports:: Arrhythmia Denies:: Cancer, Diabetes Mellitus Type 1, Diabetes Mellitus Type 2, Internal Pacemaker, MRSA, Seizures *Have you ever received a pneumonia vaccine?: No *Have you received a flu vaccine this season?: Yes Other Medical History: Denies: Blood Transfusion Reaction Anesthesia experience/problems:: None Laterality Cases: Bilateral: Other Other Surgeries: Yes: No Previous Surgery, Other. No: Pacemaker Amputation: No - *Social History Last grade of school completed: Advanced degree Smoking Status: Never smoker # Packs/Day (cigarettes): 0 #Yrs smoked (if former smoker): 0 Alcohol Intake: never Alcohol Intake Frequency:: holidays/special occasions only Substance Use Type: denies use *Occupational Status:: employed Housing: house Household Members: none *Travel in the last 8 weeks: None Family Hx:: Diabetes, Hypertension, Cancer
--- NOTE | 2021-11-24 13:05 | SUR.OPER ---
1254- pt's family updated at this time via basil robins in preop.
--- NOTE | 2021-11-24 14:17 | SUR.OPER ---
1417- family updated of Pt current status via basil robins in preop
--- NOTE | 2021-11-24 14:52 | HMH.ANESI ---
[facility] Anesthesia Record Part I Intake, IV Amount: 1,200 Estimated blood loss (mL): 10 Urine output (mL): 0 Blood Pressure: 123/90 SaO2: 93 Pulse Rate: 75 Respiratory Rate: 16 Temperature: 98.4 F Patient is:: Drowsy, Stable Stable to PACU at:: 14:50
--- NOTE | 2021-11-24 14:56 | HMH.OPNOTE ---
Date of procedure: 11/24/21 Pre-op Diagnosis:: 1. Left traumatic acute rupture of Achilles tendon 2. Hematoma of left lower extremity 3. Acute tear of left soleus muscle 4. Fall in post op (s/p left plantar fasciotomy, gastroc recession 11/10/21) 5. Syncope 6. Class 1 obesity Post-op Diagnosis:: Same Procedure performed:: 1. Left achilles tendon repair 2. Left soleus muscle repair 3. Application of allograft tendon 4. Left leg I&D (hematoma evacuation) 5. Application of injectable amniotic graft Surgeon:: Marisa Ellis DPM DIRECTOR OF STRATEGIC INITIATIVES:: Terry Hoskins Anesthesia: GETA, regional Estimated blood loss (mL): 20 Clinical Note:: Patient is a 36-year-old male who had surgery, 11/10/2021: S/p 1. Left plantar fasciectomy (fasciotomy), 2. Left gastrocnemius recession, 3. Application of graft, 4. Application of posterior splint. 11/19/21 had MRI LLE: CLINICAL HISTORY: ACHILLES TENDON RUPTURE, PT HAD PLANTAR FASCIOTOMY X1 WEEK AGO, NOW HAVING PAIN, REDNESS, SWELLING, TENDERNESS LEFT LOWER LEG MIDWAY. FALL 4 DAYS AGO. 22ML PROHANCE INJECTED. FINDINGS: Multiplanar MR imaging of the left lower leg was obtained without and with contrast. The bony structures are intact without evidence of fracture. No bony mass is identified. Portions of the lower leg are obscured by artifact. There is a high-grade near-complete tear of the Achilles tendon at the level of the mid lower leg. A few of the fibers appear intact along the lateral aspect. Most of the tendon is retracted approximately 2.6 cm. There is abnormal signal of the soleus muscle consistent with moderate muscle injury. There is posterior soft tissue edema or hemorrhage. On the postcontrast images, there is contrast enhancement of the soleus muscle and adjacent soft tissues. IMPRESSION: High-grade near-complete tear of the Achilles tendon. Moderate muscle injury of the soleus muscle. Discussed if MRI shows achilles/gastroc with soleus injury or hematoma, he will need surgery for surgical I&D and repair of tendon. The patient has been instructed on the planned procedure, all risk versus benefits of the procedure discussed. These include but are not limited to: bleeding, infection, nerve and blood vessel damage, need for further surgery, delay in healing of soft tissue or bone, tendon re-rupture, failure of bones to heal, non-union, mal-union, failure of the implant, prolonged franky and recovery, CPRS/RSD, DVT and anesthetic complications. No guarantees were given. All questions fully answered. The patient verbalized understanding and agreed to proceed with surgery. Verbal and written consent given. Operative findings:: Sutures noted to the plantar aspect of the foot over the plantar fascia surgical incision site without signs of infection. Prior gastroc recession site noted. Skin well-healed. There is hematoma noted at the site and proximal. It was evacuated without complication. No signs of infection. There is a tear noted transversely through the Achilles tendon which was retracted 3 cm proximally. There was also a tear that extended linearly through the soleus muscle laterally. Due to the traumatic nature of the injury, this case took approximately 30 minutes longer than normal. There was hematoma from trauma, excessive subcutaneous tissue layer dissection due to patient's body habitus and the nature of the muscle and tendon tear with retraction complicated the case such that the use of an allograft was necessary. Operative note:: On this date and time, the patient was deemed an appropriate surgical candidate. With informed consent signed, preop popliteal and saphenous nerve block given by anesthesia. The patient was taken to the operating theater. General anesthesia was induced. Tourniquet was applied to the left thigh @250mmHg. The patient was positioned prone. IV Ancef given. The left lower extremity was prepped and draped in normal sterile fashion. Left leg I&D (hematoma evacuation): Attention was directed to the posterior leg
--- NOTE | 2021-11-25 02:03 | P.PN_ITS ---
[facility] Anesthesia Record Part II Discharge Time: 15:20 Destination: Surgical Day Care (OP Surgery) PACU nurse assessment reviewed?: Yes Patient Condition:: Good Anesthesia Complications:: None Swallowing reflex intact?: Yes Cyanosis?: No Blood Pressure: 119/79 Pulse Rate: 76 Temperature: 97.9 F Mental Status: Alert & Oriented Pain level:: 0 Nausea and/or vomitting:: None Intake, IV Amount: 0
[2021-11-25 02:04] VITALS: BP 119/79; PULSE 76; TEMP 36.6
== END 2021-11-24 16:08 | disposition home or self-care (01) ==
LOC: OR 10:27
PROVIDERS: PCP Nurse Practitioner Family; Visit Provider Podiatrist
PROC: (CPT 27652; principal; 2021-11-24 12:00)
DX: S86.812A Strain of other muscle(s) and tendon(s) at lower leg level, left leg, initial encounter (principal); S86.012A Strain of left Achilles tendon, initial encounter; M72.2 Plantar fascial fibromatosis; R55 Syncope and collapse; W01.0XXA Fall on same level from slipping, tripping and stumbling without subsequent striking against object, initial encounter; Y93.9 Activity, unspecified; Y92.89 Other specified places as the place of occurrence of the external cause; S80.12XA Contusion of left lower leg, initial encounter
CPT/HCPCS: 27652; 27658; 27603; 96374; C1713; C1762; J2405; J2710; Q4107

== ENCOUNTER → 2022-01-10 10:19 | Outpatient (CLI) | payer BC, SELFPAY ==
[2022-01-10 11:42] LABS: Basophils % 0.4 % (0.1-2.0); Eosinophils # 0.1 K/mm3 (0.0-0.4); Eosinophils % 1.2 % (0.1-12.0); Hemoglobin 15.6 g/dL (14.1-18.0); Lymphocytes # 0.7 K/mm3 (0.7-4.5); Lymphocytes % 16.2 % (10-50); Mean Corpuscular HGB Conc 33.2 g/dL (31.8-35.4); Mean Corpuscular Hemoglobin 28.1 pg (27.0-31.2); Mean Corpuscular Volume 84.8 fl (80-94); Mean Platelet Volume 8.3 fl (7.4-10.4); Monocytes # 0.2 K/mm3 (0.1-1.0); Neutrophils # 3.1 K/mm3 (1.8-7.8); Neutrophils % 76.2 % (37.0-80.0); Platelet Count 236 K/mm3 (142-424); Red Blood Count 5.54 M/mm3 (4.60-6.20); Red Cell Distribution Width 15.9 % (11.5-17.5); White Blood Count 4.1 K/mm3 (4.8-10.8)
[2022-01-10 11:46] LABS: Chloride 105 mmol/L (98-107)
[2022-01-10 11:47] LABS: Potassium 4.1 mmoL/L (3.5-5.1); Sodium 140 mmol/L (136-145)
[2022-01-10 11:49] LABS: Alanine Aminotransferase 51 U/L (12-78); Anion Gap 15.1 mEq/L (5-15); Aspartate Amino Transferase 30 U/L (17-59); Bilirubin,Unconjugated 1.1 mg/dL (0.0-1.1); Blood Urea Nitrogen 13 mg/dl (9-20); Carbon Dioxide 24 mmol/L (22.0-30.0); Cholesterol 241 mg/dl (140-200); Estimated Glomerular Filt Rate 68 ml/min (>60); GFR (African American) 82 ML/MIN (>60); Triglycerides 180 mg/dl (30-150); VLDL Cholesterol 36 mg/dL (0-40)
[2022-01-10 11:50] LABS: Albumin Level 4.5 g/dl (3.5-5.0); Alkaline Phosphatase 64 U/L (38-126); Bilirubin,Direct 0.1 mg/dl (0.0-0.4); Bilirubin,Indirect 1.1 mg/dL (0.0-0.9); Bilirubin,Total 1.2 mg/dl (0.2-1.3); Calcium 10.2 mg/dl (8.4-10.2); Chol/HDL Ratio 5.9 (1-3.5); Glucose 124 mg/dl (74-100); HDL Cholesterol 41 mg/dl (40-60); Magnesium 1.9 mg/dl (1.6-2.3); Total Protein,Serum 7.4 g/dl (6.3-8.2)
[2022-01-10 12:01] LABS: Direct LDL Cholesterol 147.61 mg/dL (100-129)
[2022-01-10 12:21] LABS: Thyroid Stimulating Hormone 1.23 uIU/mL (0.465-4.68)
== END ==
PROVIDERS: PCP Nurse Practitioner Family; Visit Provider Nurse Practitioner
DX: R06.00 Dyspnea, unspecified (principal); R00.0 Tachycardia, unspecified; R55 Syncope and collapse; E66.9 Obesity, unspecified; Z68.32 Body mass index [BMI] 32.0-32.9, adult
CPT/HCPCS: 36415; 80048; 80061; 80076; 83735; 84439; 84443; 85025; 93270; 93971

== ENCOUNTER → 2022-03-01 10:07 | Outpatient (CLI) | payer BC, SELFPAY ==
[2022-03-01 10:44] LABS: Chloride 106 mmol/L (98-107); Potassium 4.2 mmoL/L (3.5-5.1); Sodium 139 mmol/L (136-145)
[2022-03-01 10:45] LABS: Basophils % 0.7 % (0.1-2.0); Eosinophils # 0.1 K/mm3 (0.0-0.4); Eosinophils % 2.6 % (0.1-12.0); Hematocrit 45.1 % (42.0-52.0); Hemoglobin 14.4 g/dL (14.1-18.0); Lymphocytes # 0.8 K/mm3 (0.7-4.5); Lymphocytes % 25.3 % (10-50); Mean Corpuscular HGB Conc 32.1 g/dL (31.8-35.4); Mean Corpuscular Hemoglobin 29.1 pg (27.0-31.2); Mean Corpuscular Volume 90.9 fl (80-94); Mean Platelet Volume 8.4 fl (7.4-10.4); Monocytes # 0.3 K/mm3 (0.1-1.0); Monocytes % 7.5 % (1.7-9.3); Neutrophils # 2.1 K/mm3 (1.8-7.8); Neutrophils % 63.9 % (37.0-80.0); Platelet Count 214 K/mm3 (142-424); Red Blood Count 4.96 M/mm3 (4.60-6.20); Red Cell Distribution Width 14.8 % (11.5-17.5); White Blood Count 3.4 K/mm3 (4.8-10.8)
[2022-03-01 10:46] LABS: Blood Urea Nitrogen 8 mg/dl (9-20); Estimated Glomerular Filt Rate 95 ml/min (>60); GFR (African American) 115 ML/MIN (>60)
[2022-03-01 10:47] LABS: Alanine Aminotransferase 29 U/L (12-78); Albumin Level 4.4 g/dl (3.5-5.0); Albumin/Globulin Ratio 1.6 (1.1-1.8); Alkaline Phosphatase 58 U/L (38-126); Anion Gap 9.2 mEq/L (5-15); Aspartate Amino Transferase 27 U/L (17-59); Bilirubin,Total 1.1 mg/dl (0.2-1.3); Calcium 9.6 mg/dl (8.4-10.2); Carbon Dioxide 28 mmol/L (22.0-30.0); Globulin 2.8 g/dL (1.3-3.2); Glucose 101 mg/dl (74-100); Total Protein,Serum 7.2 g/dl (6.3-8.2)
[2022-03-01 10:57] LABS: C-Reactive Protein 1.5 mg/L (0-4)
[2022-03-01 11:26] LABS: Erythrocyte Sedimentation Rate 13 mm/hr (0-15)
== END ==
PROVIDERS: PCP Nurse Practitioner Family; Visit Provider Podiatrist
DX: L25.9 Unspecified contact dermatitis, unspecified cause (principal); T81.49XA Infection following a procedure, other surgical site, initial encounter; Z98.890 Other specified postprocedural states; B95.8 Unspecified staphylococcus as the cause of diseases classified elsewhere
CPT/HCPCS: 36415; 80053; 85025; 85651; 86140; 87070; 87077; 87186; 87205

== ENCOUNTER 2022-07-19 15:00 | Outpatient (RCR) | payer BC, SELFPAY ==
--- NOTE | 2022-01-11 09:59 | HMH.PTOPEV ---
PT Outpatient Evaluation Rehab PT Outpatient Evaluation Start: 01/11/22 09:12 Freq: Status: Active Protocol: Document 01/11/22 09:12 CHANO (Rec: 01/11/22 09:59 CHANO [id number]) Electronically Signed By Nelson Finch, PT 01/11/22 09:12 Outpatient Therapy Subjective History Subjective History Pt presents s/p left achilles tendon repair on 11/24/21. Pt reports insidious onset left foot pain beginning in November, s/s progressed, MRI reveals achilles damage, sx. on 11/10/21 partial achilles repair, pt passes out/falls and completely ruptures left achilles tendon on 11/16/21. Pt reports 2nd sx. on 11/24. Pt reports MD's still attempting to diagnose 'passing out' issues, 'but I've been doing the exercises for my ankle since the last surgery'. Pt reports normal post-op swelling, stiffness, and pain. Chief Complaint Pain,Stiff,Swelling,Weakness Symptom Type Ache,Dull Symptoms Relieved By Rest/Positioning,Ice Symptoms Aggravated By Standing,Walking Prior Functional Limitations Standing,Walking,Stairs Current Functional Limitations Housework,Standing,Walking, Stairs Symptom Description Constant but Variable Level of pain today (0-10) 3 Pain scale - at its best (0-10) 2 Pain scale - at its worst (0-10) 7 Ankle/Foot Eval Gait Observation General Gait Pattern Observation Antalgic Gait,Decrease Weight Bear (L),Decrease Stride Lngth (L) Assistive Device Ambulation Assistive Device Axillary Crutches Palpation Tenderness left Ankle/Foot Palpation Findings Tenderness Ankle/Foot Palpation Overall Comment 2-3/4 achilles ROM Ankle/Foot Dorsiflexion w/Knee Extended +3 Active Range Motion (degrees) Ankle/Foot Dorsiflexion w/Knee Extended 0 Passive Range (degrees) Ankle/Foot Plantar Flexion Active Range 3-31 of Motion (degrees) Ankle/Foot Eversion Active Range of 0-10 Motion (degrees) Ankle/Foot Inversion Active Range of 0-25 Motion (degrees) Ankle/Foot ROM Limitations Soft Tissue Tightness MMT Ankle Dorsiflexion Strength Grade 4- Good- Ankle Plantarflexion Strength Grade 3+ Fair+ Foot Eversion Strength Grade 4- Good- Foot Inversion Strength Grade 4- Good- Outpatient
--- NOTE | 2022-02-10 10:04 | HMH.RHREAS ---
Rehab Reassessment Rehab OP Re-assessment Start: 02/10/22 08:13 Freq: Status: Active Protocol: Document 02/10/22 08:13 TRAVISROSIE (Rec: 02/10/22 09:59 CHANO [email or web address]) Electronically Signed By Nelson Finch, PT 02/10/22 08:13 Rehab Re-assessment Subjective Subjective Pt reports 0-2/10 left ankle/ achilles pain on VAS w/ activity, and feels 80% better overall since I eval Objective Objective Notes AROM: LEFT ANKLE DF 0-10, PF 0 -32, INV 0-25, EVR 0-9 MMT: LEFT ANKLE DF 4/5, PF 4-- 4/5, INV 4/5, EVR 4/5 TTP: LEFT ACHILLES 0-1/4 GAIT: MINIMALLY ANTALGIC ON LLE W/O A.D. ON LEVEL TERRAIN Assessment Progress Assessment Progressing as Expected Assessment Notes IMPROVED ROM/FLEXIBILITY, STRENGTH, TTP, AND GAIT Patient goals met STG'S 03/13 LTG'S 11/13 Goals Not Met STG'S 11/11, LTG'S 05/16 Plan Plan Pt to continue w/skilled P.T. to make further improvements in left ankle/achilles AROM, strength, TTP, and gait to allow for optimal function Frequency of Therapy 2-3x/wk Duration of therapy 3-4wks Time and Billing Re-Eval Time 12 Re-Eval Billing Units 1 PHYSICIAN CERTIFICATION: I certify the specified therapy services for Matthias Franklin are required, authorized, and reviewed every 30 days.
--- NOTE | 2022-04-19 16:16 | HMH.RHREAS ---
Rehab Reassessment Rehab OP Re-assessment Start: 02/10/22 08:13 Freq: Status: Active Protocol: Document 04/19/22 15:12 CHANO (Rec: 04/19/22 16:16 CHANO [id number]) Electronically Signed By Nelson Finch, PT 04/19/22 15:12 Rehab Re-assessment Subjective Subjective Pt reports improved overall function since last reassessment, w/better ROM, strength, and endurance noted concerning left achilles/ankle . Pt reports 'I feel 60-65% better overall'. Objective Objective Notes AROM: LEFT ANKLE DF 0-10, PF 0 -50, INV 0-25, EVR 0-20 MMT: LEFT ANKLE DF 5/5, PF 4-4 +/5, INV 4+/5, EVR 4+/5 TTP: LEFT ACHILLES 0-1/4 ( medial aspect) W/N&T GAIT: WFL ON LEVEL TERRAIN Wound: redness around left achilles surgical incision Assessment Progress Assessment Progressing as Expected Assessment Notes SIGNIFICANTLY IMPROVED GAIT, ROM, TTP, AND STRENGTH Patient goals met STG'S 06/13 LTG'S 03/15 Goals Not Met LTG'S 01/13 Plan Plan Pt to continue w/skilled P.T. to make further improvements in left ankle/achilles AROM, strength, TTP, and gait to allow for optimal function Frequency of Therapy 1-2X/WK Duration of therapy 3-6WKS Time and Billing Re-Eval Time 12 Re-Eval Billing Units 1 PHYSICIAN CERTIFICATION: I certify the specified therapy services for Matthias Franklin are required, authorized, and reviewed every 30 days.
--- NOTE | 2022-05-24 16:38 | HMH.RHREAS ---
Rehab Reassessment Rehab OP Re-assessment Start: 02/10/22 08:13 Freq: Status: Active Protocol: Document 05/24/22 15:46 CHANO (Rec: 05/24/22 16:38 TRAVISROSIE [id number]) E-signed By Nelson Finch, PT Rehab Re-assessment Subjective Subjective Pt reports continued improvement in left achilles/ ankle function, 'it's definitely continuing to get better, but I still wanna get to where I can pass my PT test for .' Pt reports ' burning' sensation at the left gastroc/soleus musculotendinous junction ' after being at work for about 4 hours'. Objective Objective Notes AROM: LEFT ANKLE DF 0-12, PF 0 -50, INV 0-31, EVR 0-24 MMT: LEFT ANKLE DF 5/5, PF 4-4 +/5, INV 4+-5/5, EVR 4+-5/5 TTP: LEFT ACHILLES 0/4 (medial aspect) W/N&T GAIT: WFL ON LEVEL TERRAIN, ANTALGIC ON UNLEVEL TERRAIN ON LLE, and w/plyometric hopping shifts wt. to RLE to compensate for left LE weakness and d/t self reported apprehension Wound: light redness w/scaling around left achilles surgical incision Assessment Progress Assessment Progressing as Expected Assessment Notes improved function related to strength, TTP, work-related activity, and superficial wound healing Patient goals met STG'S 06/13 LTG'S 06/15 Goals Not Met LTG'S 10/16 Revised Goals LTG #13 PT TO JOG ON TREADMILL FOR 10' W/NORMALIZED GAIT PATTERN Plan Plan Pt to continue w/skilled P.T. to make further improvements in left ankle/achilles AROM, strength, TTP, and gait to allow for optimal function Frequency of Therapy 1-2X/WK Duration of therapy 2-4WKS Time and Billing Re-Eval Time 12 Re-Eval Billing Units 1
--- NOTE | 2022-06-23 15:50 | HMH.RHREAS ---
Rehab Reassessment Rehab OP Re-assessment Start: 02/10/22 08:13 Freq: Status: Active Protocol: Document 06/23/22 14:48 CHANO (Rec: 06/23/22 15:49 CHANO [id number]) E-signed By Nelson Finch, PT Rehab Re-assessment Subjective Subjective Pt reports anterior jt line pain in left ankle since ' taking a bad step doing the agility ladder drills last time.' Pt reports 'it feels like it needs to pop, but it just won't.' Objective Objective Notes AROM: LEFT ANKLE DF 0-14 W/ PAIN, PF 0-50, INV 0-26 W/PAIN , EVR 0-24 MMT: LEFT ANKLE DF 5/5, PF 4+- 5/5, INV 4+-5/5, EVR 4+-5/5 TTP: left ATF/anterior jt line 2-3/4, LEFT ACHILLES 0/4 ( medial aspect) W/N&T GAIT: min-moderately antlagic w/treadmill jogging (PT ONLY ABLE TO TOLERATE 2' INTERVALS AT 5.0MPH) on LLE, WFL ON UNLEVEL TERRAIN Wound: light redness w/scaling around left achilles surgical incision-same as last reasesss Assessment Progress Assessment Progressing as Expected Assessment Notes IMPROVED LEFT ANKLE FUNCTIONAL STRENGTH W/HOPPING AND AGILITY TE'S, HOWEVER, PT STILL EXPERIENCES SOME MID FOOT DISCOMFORT ON LLE W/ JOGGING, AND NOW HAS ANTERIOR JT LINE PAIN IN LEFT ANKLE W/ CLOSED CHAIN DF AND INV. Patient goals met STG'S 06/13 LTG'S 07/17 Goals Not Met LTG'S 10/17 Plan Plan Pt to continue w/skilled P.T. to make further improvements in left ankle/achilles AROM, strength, TTP, and gait to allow for optimal function Frequency of Therapy 1-2X/WK Duration of therapy 2-4WKS Time and Billing Re-Eval Time 12 Re-Eval Billing Units 1 PHYSICIAN CERTIFICATION: I certify the specified therapy services for Matthias Bulmaro Rigoberto are required, authori
== END 2022-07-19 15:05 | disposition home or self-care (01) ==
LOC: PT 15:00
PROVIDERS: PCP Nurse Practitioner Family; Visit Provider Podiatrist
DX: S86.019A Strain of unspecified Achilles tendon, initial encounter (principal); Z98.890 Other specified postprocedural states
CPT/HCPCS: 97010; 97014; 97016; 97035; 97110; 97112; 97140; 97163; 97164; 97530; G0283

== ENCOUNTER → 2022-08-24 13:07 | Outpatient (CLI) | payer SELFPAY | DX: Z13.79 Encounter for other screening for genetic and chromosomal anomalies (principal) ==

== ENCOUNTER → 2022-11-03 15:23 | Outpatient (CLI) | payer BC, OTHER, SELFPAY ==
--- NOTE | 2022-11-03 15:24 | MR_ITS ---
PROCEDURE INFORMATION: Exam: MR Left Lower Extremity Joint Without Contrast; Ankle Exam date and time: 11/03/2022 3:45 PM Age: 37 years old Clinical indication: Pain; Ankle; Left; Prior surgery; Surgery date: 6+ months; Additional info: Ankle pain. Prior HX 1 year ago. Pain on plantar surface of foot. TECHNIQUE: Imaging protocol: Magnetic resonance imaging of the left lower extremity without contrast. Exam focused on the ankle. COMPARISON: MR LOWER LEG LT WO/W CON 11/19/2021 6:36 AM FINDINGS: Bones/joints: Moderate plantar calcaneal spur without fracture or erosion. There is a shallow osteochondral lesion in the periphery of the medial dome of the talus posteriorly measuring 11 by 5 mm transversely and 2 mm in depth with limited associated subchondral edema. No in-situ fragment is seen. No other acute pathology seen. As above. LIGAMENTS: Distal tibiofibular syndesmosis: Unremarkable. No tear. Anterior talofibular ligament: Unremarkable. No tear. Posterior talofibular ligament: Unremarkable. No tear. Calcaneofibular ligament: Unremarkable. No tear. Deltoid ligament complex: Unremarkable. No tear. TENDONS: Flexor tendons of foot: Unremarkable as visualized. Tibialis posterior tendon: Unremarkable as visualized. Peroneal tendons: Unremarkable as visualized. Extensor tendons of foot: Unremarkable as visualized. Tibialis anterior tendon: Unremarkable as visualized. Achilles tendon: Abnormal visualized distal Achilles tendon with irregular thickening and enlargement and low signal changes suggesting a recent repair. The distal tendon is intact and there is no significant surrounding inflammatory change or abnormal fluid collection. The extent of this change is not fully visualized superiorly. Tarsal canal (Sinus tarsi): Unremarkable. Normal signal of the fat. Tarsal tunnel: Unremarkable. Muscles: Unremarkable. Soft tissues: Unremarkable. Plantar fascia: There is fusiform thickening of the medial band of the plantar fascia beginning 2 cm distal to its origin and extending for a 2.7 cm length with limited abnormal increased intrasubstance signal. Some of this would be consistent with postoperative change in some with degeneration and possibly some underlying fibrosis. There is not a discrete tear currently or significant surrounding inflammatory change. IMPRESSION: 1. There is fusiform thickening of the medial band of the plantar fascia beginning 2 cm distal to its origin and extending for a 2.7 cm length with limited abnormal increased intrasubstance signal. Some of this would be consistent with postoperative change and some with degeneration and possibly some underlying fibrosis. There is not a discrete tear currently or significant surrounding inflammatory change. 2. Abnormal visualized distal Achilles tendon with irregular thickening and enlargement and low signal changes suggesting a recent repair. The distal tendon is intact and there is no significant surrounding inflammatory change or abnormal fluid collection. The extent of this change is not fully visualized superiorly. 3. There is a shallow osteochondral lesion in the periphery of the medial dome of the talus posteriorly measuring 11 by 5 mm transversely and 2 mm in depth with limited associated subchondral edema. No in-situ fragment is seen. 4. No other acute pathology seen. As above.
--- NOTE | 2022-11-03 15:24 | MR_ITS ---
PROCEDURE INFORMATION: Exam: MR Right Lower Extremity Joint Without Contrast; Ankle Exam date and time: 11/03/2022 3:45 PM Age: 37 years old Clinical indication: Pain; Ankle; Right; Additional info: Ankle pain. Pain on plantar surface of foot. TECHNIQUE: Imaging protocol: Magnetic resonance imaging of the right lower extremity without contrast. Exam focused on the ankle. COMPARISON: MRI LOWER EXTREMITY FOOT W/WOUT 11/23/2020 5:06 PM FINDINGS: Bones/joints: No fracture or stress response. Good preservation of articular cartilage. No other acute pathology seen. As above. LIGAMENTS: Distal tibiofibular syndesmosis: Unremarkable. No tear. Anterior talofibular ligament: Unremarkable. No tear. Posterior talofibular ligament: Unremarkable. No tear. Calcaneofibular ligament: Unremarkable. No tear. Deltoid ligament complex: Unremarkable. No tear. TENDONS: Flexor tendons of foot: Unremarkable as visualized. Tibialis posterior tendon: Unremarkable as visualized. Peroneal tendons: Unremarkable as visualized. Extensor tendons of foot: Unremarkable as visualized. Tibialis anterior tendon: Unremarkable as visualized. Achilles tendon: Unremarkable as visualized. Tarsal canal (Sinus tarsi): Unremarkable. Normal signal of the fat. Tarsal tunnel: Unremarkable. Muscles: Unremarkable. Soft tissues: Unremarkable. Plantar fascia: Plantar fascia appears unremarkable without tear or current evidence for plantar fasciitis. Minimal plantar calcaneal spur without erosion. IMPRESSION: 1. No fracture or stress response. 2. Plantar fascia appears unremarkable without tear or current evidence for plantar fasciitis. 3. No other acute pathology seen. As above.
== END ==
PROVIDERS: PCP Nurse Practitioner Family; Visit Provider Podiatrist
DX: M76.62 Achilles tendinitis, left leg (principal); S86.019A Strain of unspecified Achilles tendon, initial encounter
CPT/HCPCS: 73721

== ENCOUNTER 2024-01-04 15:00 | Outpatient (RCR) | payer BC, OTHER, SELFPAY ==
--- NOTE | 2023-10-24 16:06 | HMH.PTOPEV ---
PT Outpatient Evaluation Rehab PT Outpatient Evaluation Start: 10/24/23 15:38 Freq: Status: Active Protocol: Document 10/24/23 15:38 MAYKEL (Rec: 10/24/23 16:05 MAYKEL [id number]) E-signed By Uli Greenfield, PT Outpatient Therapy Subjective History Subjective History Patient is a 38 year old male presenting to outpatient PT with reports of chronic B foot /ankle pain. Patient underwent L achilles tendon repair approx 2 years ago. Initial injury occurred approx 4 years ago while running on a mulch path. Since surgery R foot/ankle pain onset approx 1 year ago. Symptoms L>R. No other comorbidities to report . Chief Complaint Pain,Stiff,Gives out/Unstable Symptom Type Ache,Shooting Symptoms Relieved By Rest/Positioning,OTC Meds Symptoms Aggravated By Standing,Physical Activity, Walking Prior Functional Limitations Standing,Walking Current Functional Limitations Housework,Standing,Squatting, Recreation Activity,Walking, Stairs Symptom Description Constant but Variable Level of pain today (0-10) 3 Pain scale - at its best (0-10) 3 Pain scale - at its worst (0-10) 10 Ankle/Foot Eval Gait Observation General Gait Pattern Observation Antalgic Gait,Decrease Weight Bear (L) Palpation Tenderness bilateral Ankle/Foot Palpation Findings Tenderness Ankle/Foot Palpation Overall Comment B calcaneal tubercle, distal achilles insertion 3/4 ROM left Ankle/Foot Dorsiflexion w/Knee Extended 5 Active Range Motion (degrees) Ankle/Foot Plantar Flexion Active Range 40 of Motion (degrees) Ankle/Foot Eversion Active Range of 19 Motion (degrees) Ankle/Foot Inversion Active Range of 26 Motion (degrees) Great Toe ROM Reason Not Measured Within Functional Limits right Ankle/Foot Dorsiflexion w/Knee Extended 5 Active Range Motion (degrees) Ankle/Foot Plantar Flexion Active Range 60 of Motion (degrees) Ankle/Foot Eversion Active Range of 14 Motion (degrees) Ankle/Foot Inversion Active Range of 26 Motion (degrees) Ankle/Foot ROM Reason Not Measured Within Functional Limits MMT bilateral Ankle Dorsiflexion Strength Grade 5 Normal Ankle Plantarflexion Strength Grade 5 Normal Foot Eversion Strength Grade 5 Normal Foot Inversion Strength Grade 5 Normal Special Tests Ankle Anterior Drawer Test Negative Left,Negative Right Talar Tilt Test Negative Left,Negative Right Ankle Posterior Drawer Test Negative Left,Negative Right Foot Interdigital Neuroma Test Negative Left,Negative Right Lower Extremity Functional Index Activities Today, do you or would you have any difficulty at all with: a.Any of your usual work, housework or A little bit of difficulty school activities b. Your usual hobbies, recreational or Quite a bit of difficulty sporting activities c. Getting into or out of the bath A little bit of difficulty d. Walking between rooms A little bit of difficulty e. Putting on your shoes or socks No difficulty f. Squatting No difficulty g. Lifting an object, like a bag of No difficulty groceries from the floor h. Performing light activities around No difficulty your home i. Performing heavy activities around A little bit of difficulty your home j. Getting into or out of a car A little bit of difficulty k. Walking 2 blocks A little bit of difficulty l. Walking a mile Moderate difficulty m. Going up or down 10 stairs (about 1 A little bit of difficulty flight of stairs) n. Standing for 1 hour Quite a bit of difficulty o. Sitting for 1 hour Quite a bit of difficulty p. Running on even ground Extreme difficulty or unable to perform activity q. Running on uneven ground Extreme difficulty or unable to perform activity r. Making sharp turns while running fast Extreme difficulty or unable to perform activity s. Hopping Quite a bit of difficulty t. Rolling over in bed No difficulty LEFI Score Lower Extremity Functional Index Score 47 Outpatient Therapy Assessment Impairments Problems/Impairmments Palpation Tenderness,Impaired Range of Motion,Impaired Gait Pattern,Impaired Walking, Impaired Standing,Impaired Lifting,Impaired Household Care,Impaired Stair Climbing, Impaired Incline Stepping, Impaired Stepping on Uneven Surface,Impaired Squatting, Impaired Recreational Activities,Impaired Running, Impaired Jumping,Impaired Work Activities,Impaired Balance, Subjective C/O Pain Prognosis Rehab Potential Good Clinical Impression Consistent with Diagnosis Yes Short Term Goals Number of Weeks 2 Decrease Subjective C/O Pain Yes: 5/10 at worst Patient to be Ind w/ HEP Yes Half-Way Goals Number of Weeks 4-6 Decreased Palpation Tenderness Yes: 1/4 Increase Range of Motion Yes: WNL all planes Increase Ability to Walk Yes: 1 hr without difficulty ( 30 min tolerance currently) Increase Ability to Stand Yes: Improve Ability to Climb Stairs Yes: 1 flight up/down without difficulty Return to Recreational Activities Yes Improve Ability to Run Yes: 1 mile without difficulty Improve LEFI Score Yes: >60 Decrease Subjective C/O Pain Yes: 2/10 at worst Outpatient Therapy Plan of Care Treatment Plan May Include Therapeutic Exercise Including Home Yes Exercise Program Manual Therapy Techniques Yes Neuromuscular Re-education Yes Therapeutic Activities to Return to Yes Previous Functional/Work Level Gait Training Yes ADL/Self Care Education Yes Mechanical Traction Yes Dry Needling Yes Thermal Modalities Yes Electrical Stimulation Yes Ultrasound/Phonophoresis Yes Iontophoresis Yes Orthotics/Bracing/Splinting Yes Vasopneumatic Compression Pump Yes Massage Yes Eval/Re-Eval Yes Frequency Times per week 2 Duration Number of Weeks 4-6 Addendums This patient is a candidate for social No or vocational rehab? Patient/Guardian verbally acknowledges Yes understanding of treatment program and consents to further treatment? Patient/Guardian verbally acknowledges Yes understanding of diagnosis, prognosis and goals for treatment? Eval Complexity PT Charges 10179 - Moderate Complexity Shoulder/Elbow Eval Shoulder Objective Measurements Elbow Objective Measurements PHYSICIAN CERTIFICATION: I certify the specified therapy services for Matthias Franklin are required, authorized, and reviewed every 30 days.
--- NOTE | 2023-11-28 16:22 | HMH.RHREAS ---
Rehab Reassessment Rehab OP Re-assessment Start: 10/24/23 15:38 Freq: Status: Active Protocol: Document 11/28/23 16:01 PHORCARIDAD (Rec: 11/28/23 16:22 PHORNE [id number]) E-signed By Gio Moore, PT Lower Extremity Functional Index Activities Today, do you or would you have any difficulty at all with: a.Any of your usual work, housework or No difficulty school activities b. Your usual hobbies, recreational or A little bit of difficulty sporting activities c. Getting into or out of the bath No difficulty d. Walking between rooms No difficulty e. Putting on your shoes or socks No difficulty f. Squatting No difficulty g. Lifting an object, like a bag of No difficulty groceries from the floor h. Performing light activities around No difficulty your home i. Performing heavy activities around A little bit of difficulty your home j. Getting into or out of a car No difficulty k. Walking 2 blocks A little bit of difficulty l. Walking a mile Moderate difficulty m. Going up or down 10 stairs (about 1 No difficulty flight of stairs) n. Standing for 1 hour No difficulty o. Sitting for 1 hour No difficulty p. Running on even ground Moderate difficulty q. Running on uneven ground Moderate difficulty r. Making sharp turns while running fast A little bit of difficulty s. Hopping A little bit of difficulty t. Rolling over in bed No difficulty LEFI Score Lower Extremity Functional Index Score 69 Rehab Re-assessment Subjective Subjective Patient reports that he has improved approximately 80% since beginning Physical Therapy. He reports his current pain at 2/10 and it has not exceeded that in two weeks. Patient reports that he is still having some slight difficulty going up and down stairs. Reports he fought his first fire since it has been hurting yesterday and it handled it well. Running is still difficult. Objective Objective Notes AROM: PF: 45 R and 52 L DF: 12 R and 14 L INV: 20 R and 18 L EVER: 30 R and 30 L Strength: 5/5 BL Gait: no noted deviations. Assessment Progress Assessment Progressing as Expected Assessment Notes Patient has demonstrated signficant improvements in ROM , subjective c/o pain and functional capabilities. Skilled PT remains indicated for this patient's return to their prior level of function. Patient goals met ST,2 LT,4,5,8 Goals Not Met LT,3,6,7,9 Plan Plan Continue as per protocol. Increased emphasis on weight bearing activities. Frequency of Therapy 2-3/week Duration of therapy 6 weeks Time and Billing Re-Eval Time 12 Re-Eval Billing Units 1 PHYSICIAN CERTIFICATION: I certify the specified therapy services for Matthias Franklin are required, authorized, and reviewed every 30 days.
--- NOTE | 2024-01-04 10:28 | HMH.RHREAS ---
Rehab Reassessment Rehab OP Re-assessment Start: 10/24/23 15:38 Freq: Status: Active Protocol: Document 01/04/24 10:17 RYANLIZBET (Rec: 01/04/24 10:28 MAYKEL [id number]) E-signed By Uli Greenfield, PT Lower Extremity Functional Index Activities Today, do you or would you have any difficulty at all with: a.Any of your usual work, housework or A little bit of difficulty school activities b. Your usual hobbies, recreational or No difficulty sporting activities c. Getting into or out of the bath No difficulty d. Walking between rooms No difficulty e. Putting on your shoes or socks No difficulty f. Squatting No difficulty g. Lifting an object, like a bag of No difficulty groceries from the floor h. Performing light activities around A little bit of difficulty your home i. Performing heavy activities around Quite a bit of difficulty your home j. Getting into or out of a car A little bit of difficulty k. Walking 2 blocks Moderate difficulty l. Walking a mile Quite a bit of difficulty n. Standing for 1 hour A little bit of difficulty o. Sitting for 1 hour Quite a bit of difficulty p. Running on even ground Quite a bit of difficulty q. Running on uneven ground Quite a bit of difficulty r. Making sharp turns while running fast Quite a bit of difficulty s. Hopping Moderate difficulty t. Rolling over in bed No difficulty Rehab Re-assessment Subjective Subjective Patient reports that he has improved approximately 80% since beginning Physical Therapy. Objective Objective Notes AROM: PF: 45 R and 52 L DF: 13 R and 14 L INV: 24 R and 19 L EVER: 21 R and 23 L Pain: 3/10 currently; 5/10 at worst over past week Neuro: WNL Assessment Progress Assessment Progressing as Expected Assessment Notes Patient would benefit from continuing with skilled PT interventions in order to address functional limitations with all standing/ambulatory activities. Overall decreased symptoms with addition of dry needling. Patient goals met STG 2 Goals Not Met All other Revised Goals NA Plan Plan Continue with current POC. Frequency of Therapy 2x/week Duration of therapy 4 weeks Time and Billing Re-Eval Time 16 Re-Eval Billing Units 1 PHYSICIAN CERTIFICATION: I certify the specified therapy services for Matthias Chamberlain Rigoberto are required, authorized, and reviewed every 30 days.
== END 2024-01-04 15:05 | disposition home or self-care (01) ==
LOC: PT 15:00
PROVIDERS: PCP Nurse Practitioner Family; Visit Provider Podiatrist
DX: M79.671 Pain in right foot (principal); M79.672 Pain in left foot; M72.2 Plantar fascial fibromatosis; M76.62 Achilles tendinitis, left leg; S86.019A Strain of unspecified Achilles tendon, initial encounter; Z98.890 Other specified postprocedural states
CPT/HCPCS: 20560; 20561; 97010; 97014; 97035; 97110; 97140; 97163; 97164; 97530; G0283

== ENCOUNTER 2024-05-16 05:30 | Emergency (ER) | payer BC, OTHER, SELFPAY ==
[2024-05-16 05:31] VITALS: BP 139/82; PULSE 87; RESP 16; TEMP 36.6; O2SAT 99; BMI 33.9
--- NOTE | 2024-05-16 05:40 | XR_ITS ---
FINAL REPORT CLINICAL HISTORY: rolled ankle, lateral/posterior pain FINDINGS: Left ankle Three views were obtained. There is no acute fracture or dislocation. The joint spaces appear normal. No soft tissue abnormality is identified. Plantar calcaneal spur is identified. IMPRESSION: No acute process. Reviewed, Interpreted and Dictated by Nash Alfred III, MD Transcribed by Beverly Lara Authenticated and [facility]
--- NOTE | 2024-05-16 05:40 | XR_ITS ---
FINAL REPORT CLINICAL HISTORY: rolled ankle, pain in top of foot FINDINGS: Left foot Three views were obtained. There is no acute fracture or dislocation. Mild degenerative changes are present. No soft tissue abnormality is identified. There is a plantar calcaneal spur. IMPRESSION: No acute process. Reviewed, Interpreted and Dictated by Nash Alfred III, MD Transcribed by Beverly Lara Authenticated and . [facility]
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
[2024-05-16 05:48] VITALS: PULSE 85
[2024-05-16] MEDS: ACETAMINOPHEN 500MG TAB 1000 MG PO (07:09)
[2024-05-16] MEDS: IBUPROFEN 600 MG TABLET PO (07:09)
--- NOTE | 2024-05-16 07:54 | PC.NURSE ---
CALLED RADIOLOGY TO CHECK ON XR READS. PATY FAXED [facility] READS.
[2024-05-16 08:16] VITALS: BP 111/70; PULSE 74; RESP 18; TEMP 36.7; O2SAT 96
== END 2024-05-16 08:18 | disposition home or self-care (01) ==
PROVIDERS: Emergency Provider Emergency Medicine; PCP Nurse Practitioner Family
DX: S93.402A Sprain of unspecified ligament of left ankle, initial encounter (principal); M25.572 Pain in left ankle and joints of left foot; X50.1XXA Overexertion from prolonged static or awkward postures, initial encounter
CPT/HCPCS: 73610; 73630; 99283

== ENCOUNTER 2024-10-15 15:27 | Outpatient (CLI) | payer BC, OTHER, SELFPAY ==
[2024-10-15 20:02] LABS: Coronavirus 19, PCR Not Detected (NotDetected); Influenza B, PCR Not Detected (NotDetected)
[2024-10-15 21:28] LABS: Influenza A, PCR Detected (NotDetected)
== END 2024-10-15 23:59 | disposition home or self-care (01) ==
LOC: LAB.DROPOF 10-16 11:48
PROVIDERS: PCP Student in an Organized Health Care Education/Training Program; Visit Provider Student in an Organized Health Care Education/Training Program
DX: R68.89 Other general symptoms and signs (principal); J02.9 Acute pharyngitis, unspecified; R05.9 Cough, unspecified
CPT/HCPCS: 87636